=== PATIENT | male | born 1970 | race Caucasian/White ===

== ENCOUNTER 2020-01-30 17:14 | Observation (INO) ==
[2020-01-30 18:00] LABS: Basophils # 0.1 K/mcL (0.0-0.2); Basophils % 0.6 %; Eosinophils # 0.3 K/mcL (0.0-0.6); Eosinophils % 3.6 %; Hematocrit 34.2 % (37.5-50.1); Hemoglobin 11.7 g/dL (12.9-16.9); Immature Granulocytes % 0.2 % (0-4); Lymphocytes # 1.7 K/mcL (0.6-4.6); Lymphocytes % 20.8 %; Mean Corpuscular HGB Conc 34.2 g/dL (31.6-35.5); Mean Corpuscular Hemoglobin 29.5 pg (28.0-33.3); Mean Corpuscular Volume 86.4 fL (83.0-100.0); Mean Platelet Volume 8.8 fL (9.4-12.4); Monocytes # 0.7 K/mcL (0.0-1.3); Monocytes % 8.2 %; Neutrophils # 5.6 K/mcL (1.6-8.9); Platelet Count 463 K/mcL (140-400); Red Blood Count 3.96 M/mcL (4.19-5.50); Red Cell Distribution Width 15.4 % (11.5-14.5); Segmented Neutrophils % 66.6 %; White Blood Count 8.4 K/mcL (4.3-11.1)
[2020-01-30 18:27] LABS: Alanine Aminotransferase 23 Units/L (7-52); Albumin 4.4 g/dL (3.5-5.7); Albumin/Globulin Ratio 1.5 (1.1-2.2); Alkaline Phosphatase 82 Units/L (34-104); Aspartate Amino Transferase 29 Units/L (13-39); BUN/Creatinine Ratio 22 (6-26); Bilirubin,Direct 0.1 mg/dL (0.0-0.2); Bilirubin,Indirect 0.3 mg/dL (0.0-1.0); Bilirubin,Total 0.4 mg/dL (0.3-1.0); Blood Urea Nitrogen 25 mg/dL (6-20); Calcium 9.5 mg/dL (8.6-10.3); Carbon Dioxide 26 mEq/L (23-29); Chloride 101 mEq/L (98-107); Globulin 2.9 g/dL (2.4-3.5); Glucose 93 mg/dL (70-105); Magnesium 1.9 mg/dL (1.6-2.6); Osmolality,Calculated 284 (280-300); Potassium 3.5 mEq/L (3.5-5.1); Sodium 135 mEq/L (136-145); Total Protein 7.3 g/dL (6.4-8.9); Troponin I 0.04 ng/mL (< 0.04); eGFR For African Americans > 60 (> 60); eGFR For Non-African Americans > 60 (> 60)
[2020-01-30] MEDS ORDERED: *HR* HYDROcodone/Acet 10/325 mg TABLET PO ONE (18:42)
[2020-01-30] MEDS ORDERED: Aspirin 325 MG TABLET PO ONE (18:43)
[2020-01-30] MEDS ORDERED: Naloxone 0.4 MG/ML INJ IVP PRN (20:35)
[2020-01-30] MEDS ORDERED: Perflutren Lipid Microsphere 1.3 ML in 0.9 % Sodium Chloride 8.7 ML IVP PRN (23:09)
[2020-01-30] MEDS ORDERED: Thiamine (B-1) 100 MG, Folic Acid 1 MG, MVI, adult with vitamin K 10 ML in 0.9 % Sodi... IVPB SCH (23:15)
[2020-01-30] MEDS: *HR* HYDROcodone/Acet 5/325 mg TABLET PO PRN (23:40)
[2020-01-31 05:08] LABS: Bilirubin,Urine Negative (Negative); Blood,Urine Negative (Negative); Clarity,Urine Clear (Clear); Color,Urine Yellow (Yellow); Glucose,Urine (UA) Normal (Normal); Ketones,Urine Trace mg/dL (Negative); Leukocyte Esterase,Urine Negative (Negative); Nitrite,Urine Negative (Negative); PH,Urine 6.5 pH Units (5.0-8.0); Protein,Urine Trace mg/dL (Neg-Trace); Specific Gravity,Urine > 1.030 (1.010-1.025)
[2020-01-31] MEDS: *HR* HYDROcodone/Acet 5/325 mg TABLET PO PRN (05:52)
[2020-01-31 06:24] LABS: Basophils % 0.6 %; Eosinophils # 0.4 K/mcL (0.0-0.6); Eosinophils % 7.4 %; Hematocrit 32.3 % (37.5-50.1); Hemoglobin 10.8 g/dL (12.9-16.9); Immature Granulocytes % 0.2 % (0-4); Lymphocytes # 1.7 K/mcL (0.6-4.6); Lymphocytes % 32.6 %; Mean Corpuscular HGB Conc 33.4 g/dL (31.6-35.5); Mean Corpuscular Hemoglobin 29.6 pg (28.0-33.3); Mean Corpuscular Volume 88.5 fL (83.0-100.0); Mean Platelet Volume 8.8 fL (9.4-12.4); Monocytes # 0.5 K/mcL (0.0-1.3); Monocytes % 9.9 %; Neutrophils # 2.5 K/mcL (1.6-8.9); Platelet Count 405 K/mcL (140-400); Red Blood Count 3.65 M/mcL (4.19-5.50); Red Cell Distribution Width 15.6 % (11.5-14.5); Segmented Neutrophils % 49.3 %; White Blood Count 5.2 K/mcL (4.3-11.1)
[2020-01-31 06:46] LABS: BUN/Creatinine Ratio 24 (6-26); Blood Urea Nitrogen 28 mg/dL (6-20); Calcium 8.8 mg/dL (8.6-10.3); Carbon Dioxide 25 mEq/L (23-29); Chloride 104 mEq/L (98-107); Glucose 96 mg/dL (70-105); Osmolality,Calculated 285 (280-300); Phosphorous 4.3 mg/dL (2.7-4.5); Potassium 3.9 mEq/L (3.5-5.1); Sodium 135 mEq/L (136-145); eGFR For African Americans > 60 (> 60); eGFR For Non-African Americans > 60 (> 60)
[2020-01-31] MEDS ORDERED: Regadenoson 0.4 MG/5 ML SYRINGE IVP ONE (08:53)
[2020-01-31 11:28] VITALS: BP 132/82
== END 2020-01-31 14:51 | disposition home or self-care (01) ==
LOC: 3BNU 17:14 → EMEROOARM 17:14 → 3BNU 19:32
PROVIDERS: ADMIT Internal Medicine; ATTEND Internal Medicine